=== PATIENT | male | born 1990 | race Hispanic/Latino ===

== ENCOUNTER 2024-08-13 16:44 | Emergency (ER) | payer BC ==
[~2024-08-13] VITALS: Ht 172.7 cm; Wt 99.8 kg
[2024-08-13 17:37] LABS: BASOPHILS # (AUTO) 0.03 K/uL (0.00-0.20); BASOPHILS % (AUTO) 0.3 % (0.0-5.0); EOSINOPHILS % (AUTO) 1.1 % (0.0-8.0); HEMATOCRIT 40.8 % (42-54); IMMATURE GRANULOCYTE ABSOLUTE 0.03 K/uL (0-1); LYMPHOCYTES # (AUTO) 1.3 K/uL (1.0-4.8); MEAN CORPUSCULAR HEMOGLOBIN 26.8 pg (27.0-33.0); MEAN CORPUSCULAR HGB CONC 33.6 g/dL (32.0-36.0); MEAN CORPUSCULAR VOLUME 79.8 fL (79-99); MONOCYTES # (AUTO) 0.8 K/uL (0.1-1.0); MONOCYTES % (AUTO) 8.3 % (3.0-13.0); PLATELET COUNT (AUTO) 367 K/uL (130-400); RED BLOOD CELL COUNT(AUTO) 5.11 MIL/uL (4.50-6.20); RED CELL DISTRIBUTION WIDTH 14.2 % (11.0-15.5); WHITE BLOOD COUNT (AUTO) 9.2 K/uL (4.8-10.8)
[2024-08-13 17:46] LABS: CREATININE 1.4 mg/dL (0.5-1.3); POTASSIUM 3.5 mmol/L (3.5-5.1)
[2024-08-13 18:11] LABS: APPEARANCE,URINE CLEAR (CLEAR); BILIRUBIN,URINE NEGATIVE (NEGATIVE); COLOR,URINE COLORLESS (YELLOW); GLUCOSE, URINE (UA) NEGATIVE (NEGATIVE); KETONES,URINE NEGATIVE (NEGATIVE); LEUKOCYTE ESTERASE ,URINE NEGATIVE Leu/uL (NEGATIVE); NITRATE,URINE NEGATIVE (NEGATIVE); OCCULT BLOOD,URINE NEGATIVE (NEGATIVE); PH,URINE 5.5 (5.0-8.0); PROTEIN,URINE NEGATIVE (NEGATIVE); UROBILINOGEN,URINE 0.2 mg/dL (0.2-1.0)
[2024-08-13 18:14] LABS: ADD UA MICROSCOPIC NO
[2024-08-13] MEDS: ketOROlac 15MG/ML VIAL (15MG/ML) IM STA (18:41)
[2024-08-13] MEDS: CYCLOBENZAPRINE HCL 10 MG TABLET PO STA (18:41)
[2024-08-13] MEDS: 0.9%NACL 1000ML 1,000 ML IV SCH (19:09)
[2024-08-13 19:23] LABS: BILIRUBIN,DIRECT 0.1 mg/dL (0.0-0.3); BILIRUBIN,TOTAL 0.4 mg/dL (0.2-1.0); TOTAL PROTEIN, SERUM 7.5 g/dL (6.0-8.3)
[2024-08-13 19:57] VITALS: BP 133/90; PULSE 74; RESP 18; TEMP 98.7; O2SAT 98
[2024-08-13] MEDS ORDERED: METH-662 PO (19:57)
[2024-08-13] MEDS ORDERED: IBUP-2077 PO (19:57)
== END 2024-08-13 20:03 | disposition home or self-care (01) ==
LOC: EEVIPCON 16:44 → EDH 16:44
DX: R10.84 Generalized abdominal pain (principal)
CPT/HCPCS: 99284; 76705; 82550; 80076; 80048; 83690; 85025; 81003; 36415; 96372; J7030; J1885